=== PATIENT | female | born 1940 | race Caucasian/White ===

== ENCOUNTER 2019-07-11 17:06 | Emergency (ER) | payer OTHER ==
[~2019-07-11] VITALS: Ht 167.6 cm; Wt 54.4 kg
[2019-07-11 17:09] VITALS: BP 119/65; Ht 167.6 cm; Wt 54.4 kg
== END 2019-07-11 17:30 | disposition left against medical advice (07) ==
LOC: ED 17:06
DX: R10.9 Unspecified abdominal pain (principal)